=== PATIENT | male | born 1980 ===

== ENCOUNTER 2019-01-07 14:51 | Emergency (ER) | payer MEDICAID ==
[~2019-01-07] VITALS: Ht 185.4 cm; Wt 88.9 kg
[2019-01-07] MEDS ORDERED: VENTOLIN HFA18 GM INH (14:55)
--- NOTE | 2019-01-07 15:10 | NUR ---
ED Nurse Note: patient was called into the room, patient refused to come in.
--- NOTE | 2019-01-07 15:45 | NUR ---
ED Nurse Note: patient offered to come in and see the MD/PA, but patient refused to be seen at this time.
--- NOTE | 2019-01-07 16:00 | NUR ---
ED Nurse Note: notified ISSA Ness that patient is still refusing to be seen and get evaluation.
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
[2019-01-07 16:40] VITALS: BP 123/70
--- NOTE | 2019-01-07 16:40 | NUR ---
Homeless Discharge: Patient is being discharged from medical care. Patient is wake, alert and oriented x4, ambulatory steady gait, breathing unlabored and even, speaking in full sentences. After care instructions, including referral to community resources were offered but patient declined. RN attempted to discharge patient. After care instructions given but patient refused, patient declined to sign the discharge paper RN went to check with ISSA Reyes and patient left without signing discharge paper. At this time patient does not request and in need of any medications, equipment or placement. Patient ambulated out with all personal belongings with steady gait. ISSA Reyes notified, CN notified.
--- NOTE | 2019-01-07 16:45 | NUR ---
Sam conway in EDM - 01/07/19 at 1730 by VERENICE ED Nurse Note: patient offered to come in and see the MD/PA, but patient refused to be seen at this time.
== END 2019-01-07 16:40 | disposition home or self-care (01) ==
LOC: EDBD 14:51 → EMR 16:40
DX: R42 Dizziness and giddiness (principal); J45.909 Unspecified asthma, uncomplicated
CPT/HCPCS: 99281